=== PATIENT | male | born 1955 | race Caucasian/White ===

== ENCOUNTER → 2019-06-02 | Outpatient (CLI) | payer OTHER | END | disposition home or self-care (01) | LOC: LABPAT 11:06 | PROVIDERS: ATTEND Internal Medicine Cardiovascular Disease | DX: Z53.9 Procedure and treatment not carried out, unspecified reason (principal) ==

== ENCOUNTER 2019-06-11 06:35 | Day surgery (SDC) | payer OTHER ==
[~2019-06-11 06:35] MED LIST: ALPRAZolam 0.25 MG TAB PO PRN; ALPRAZolam 0.5 MG TAB PO PRN; ASPIRIN 325 MG TAB PO STA; ATORVASTATIN 80 MG TAB PO STA; NITROGLYCERIN SL TABS 0.4 MG TAB SUBLINGUAL PRN; SODIUM CHLORIDE 0.9% 1,000 ML in EMPTY BAG 1 BAG IV ONE
[2019-06-11] MEDS ORDERED: SODIUM CHLORIDE 0.9% 1,000 ML IV ONE (07:06)
[2019-06-11 07:10] LABS: Glucose,Whole Blood 119 mg/dL (75-99)
[2019-06-11 07:15] LABS: Basophils # (A) 0.1 k/uL (0-0.2); Basophils % (A) 1 %; Eosinophils # (A) 0.3 k/uL (0-0.7); Eosinophils % (A) 3 %; HCT 39.2 % (39.0-53.0); HGB 13.1 gm/dL (13.0-17.5); Lymphocytes # (A) 1.5 k/uL (1.0-4.8); Lymphocytes % (A) 15 %; MCH 27.3 pg (25.0-35.0); MCHC 33.3 g/dL (31.0-37.0); MCV 82.1 fL (80.0-100.0); Mean Platelet Volume 6.4; Monocytes # (A) 0.4 k/uL (0-1.0); Monocytes % (A) 4 %; Neutrophils # (A) 7.7 k/uL (1.3-7.7); Neutrophils % (A) 76 %; Platelet Count 225 k/uL (150-450); RBC 4.78 m/uL (4.30-5.90); RDW 14.8 % (11.5-15.5); WBC 10.2 k/uL (3.8-10.6)
[2019-06-11] MEDS ORDERED: LIDOCAINE 1% INJ 10MG/ML (20 ML MDV) ONE (07:17)
[2019-06-11 07:24] LABS: Calcium 9.6 mg/dL (8.4-10.2); Potassium 4.3 mmol/L (3.5-5.1)
[2019-06-11] MEDS ORDERED: MIDAZOLAM 2 MG/2 ML VIAL IV ONE (07:36)
[2019-06-11] MEDS ORDERED: LIDOCAINE 1% INJ 10MG/ML (20 ML MDV) SQ ONE (07:38)
[2019-06-11] MEDS ORDERED: BIVALIRUDIN BOLUS 250 MG/50 ML IV ONE (08:20)
[2019-06-11] MEDS ORDERED: BIVALIRUDIN 250 MG in SODIUM CHLORIDE 0.9% 50 ML IV ONE ×2 (08:21→09:11)
--- NOTE | 2019-06-11 08:23 | CC ---
CARDIAC CATHETERIZATION REPORT INDICATION: Shortness of breath with abnormal stress test in a patient with cardiomyopathy and areas of reversible perfusion defect involving the anterior wall and anterolateral wall. PROCEDURE NOTE: After obtaining informed consent, left heart catheterization and coronary angiogram are performed via the right femoral artery using standard Madi catheters. The patient tolerated the procedure well without any obvious immediate complications. A femoral angiogram was performed and Angio-Seal will be deployed at the end of the procedure. The patient received moderate conscious sedation. Total sedation time was 15 minutes. FINDINGS: 1. HEMODYNAMICS: Left ventricular end-diastolic pressure is 16-18 mm. There is no significant gradient across the aortic valve. 2. LEFT VENTRICULOGRAM: Left ventriculogram is not performed. 3. ANGIOGRAPHIC DATA: Left Main Coronary Artery: Left main coronary artery is a normal-sized vessel and is free of significant stenosis. Divides into left anterior descending coronary artery and circumflex coronary artery. LAD shows an occluded diagonal branch with [id number] collaterals from the distal LAD to the diagonal. There is a long segment of moderate area of atherosclerotic plaque in the mid LAD. Circumflex coronary artery is a nondominant vessel that shows a 90% to 95% stenosis at the origin of the OM branch. Right coronary artery is a large dominant vessel that shows mild nonobstructive disease in the proximal and midportion. The PDA shows a 70% focal stenosis. CONCLUSIONS: Three-vessel coronary artery disease as described above with 95% stenosis involving the OM branch and 70% stenosis involving PDA. PLAN: I am going to review the angiographic data with Dr. James Amos, the on-call contact lens manufacturer, and decide on multivessel angioplasty. MMODL / IJN: [id number] /
[2019-06-11] MEDS: NITROGLYCERIN 1000MCG/10ML SYRINGE INTRACORON ONE ×3 (08:37→09:14)
[2019-06-11] MEDS ORDERED: IOPAMIDOL-370 125ML BTL INJ ONE ×2 (08:39→09:02)
[2019-06-11] MEDS ORDERED: TICAGRELOR 90 MG TAB ONE (09:17)
[2019-06-11] MEDS ORDERED: TICAGRELOR 90 MG TAB PO ONE (09:18)
[2019-06-11] MEDS ORDERED: IOPAMIDOL-250 100ML BTL INTRAARTER ONE (09:20)
--- NOTE | 2019-06-11 12:57 | PTCA ---
PERCUTANEOUSTRANS CORORONARY ANGIOGRAPHY DATE OF SERVICE: 06/11/2019. PROCEDURES: 1. PTCA and stenting of mid left anterior descending coronary artery with a drug- eluting stent. 2. PTCA and stenting of circumflex marginal with a drug-eluting stent. PERFORMED BY: Dr. James Amos. Moderate conscious sedation time was 65 minutes. Patient was administered Versed. Oxygen saturation, hemodynamics and EKG were monitored closely. CLINICAL INFORMATION: Mr. Reyes Blevins is a 63-year-old gentleman, a patient of Dr. Diaz with abnormal stress test with antral wall reversible defect, who underwent a cardiac cath that revealed that there was a diagonal branch that was occluded and a small obtuse marginal branch that was occluded, but mid LAD had eccentric 70% stenosis in a very calcified area. Circumflex marginal had about 80% to 85% stenosis right at its ostium and in the proximal portion and the circumflex at the site of the origin of this marginal had a 30% narrowing. He was advised intervention that was performed in the same setting. This gentleman has atrial fibrillation, controlled rate on Eliquis 5 mg b.i.d. PROCEDURE NOTE: The existing 6-Palestinian introducer in the femoral artery was used to perform procedure. I used a JL4 guide catheter to cannulate left coronary artery and a run-through wire was used to cross the lesion. A 2.5 caliber 18 mm NC Trek balloon was used to dilate the LAD lesion. I then deployed an 18 mm long 2.75 caliber Xience stent and deployed this at 13 atmospheres. Excellent angiographic result without complication was achieved. Patient had mild chest discomfort and no significant EKG changes. I then used the same wire and went into the circumflex marginal and also another whisper wire was used to place in the main circumflex. A 2.5, 12 mm NC Trek balloon was used to dilate the circumflex marginal. I then deployed a 12 mm long 2.5 caliber Xience stent in the circumflex vessel. Excellent angiographic result was achieved. The patient had no complication. He received Angiomax bolus and infusion and also he received 180 mg of ticagrelor, Brilinta. The sheath was taken out and Angio-Seal device used to secure hemostasis and he was sent to the room in a stable condition. The results were discussed with the patient and his brother Mr. Thanh Blevins. Excellent angiographic result without complication was achieved. He will be discharged tomorrow if he remains stable. MMLILA / KELVINN: [id number] /
[2019-06-11 13:09] VITALS: BMI 33.6
[2019-06-11] MEDS: SODIUM CHLORIDE 0.9% 1,000 ML IV SCH (13:22)
[2019-06-11] MEDS: METOPROLOL TARTRATE 25 MG TAB PO SCH ×2 (16:13→20:20)
[2019-06-11 16:46] LABS: Glucose,Whole Blood 122 mg/dL (75-99)
[2019-06-11] MEDS ORDERED: LOSARTAN 25 MG TAB PO SCH (21:00)
[2019-06-11] MEDS ORDERED: ATORVASTATIN 80 MG TAB PO SCH (21:00)
[2019-06-11 21:07] LABS: Glucose,Whole Blood 129 mg/dL (75-99)
[2019-06-12] MEDS: SODIUM CHLORIDE 0.9% 1,000 ML IV SCH (03:08)
[2019-06-12] MEDS ORDERED: TICAGRELOR 90 MG TAB PO SCH (06:00)
[2019-06-12] MEDS ORDERED: ASPIRIN 81 MG PO SCH (06:00)
[2019-06-12 06:38] LABS: Glucose,Whole Blood 119 mg/dL (75-99)
[2019-06-12 08:39] VITALS: BP 103/75; PULSE 90; RESP 18; TEMP 98.1
[2019-06-12] MEDS: METOPROLOL TARTRATE 25 MG TAB PO SCH (08:39)
[2019-06-12] MEDS ORDERED: ATORVASTATIN 80 MG TAB PO SCH (09:00)
--- NOTE | 2019-06-12 09:33 | P.DS ---
Providers Attending physician: Richard Diaz Primary care physician: [facility] Course: This is a pleasant 63-year-old gentleman who sees Dr. Diaz in the office as an outpatient was experiencing chest discomfort. The patient does have diabetes, hypertension, dyslipidemia. He underwent heart catheterization and was found to have severe 2 vessel CAD involving the LCx and LAD. He underwent successful stenting of both vessels by Dr. Amos area On follow-up with him today, he is doing good and he is asymptomatic. The right groin is soft and nontender and without any bruises. The patient is going to be discharged home and follow-up with Dr. Diaz in the office. Plan - Discharge Summary Discharge Rx Participant: No New Discharge Prescriptions: New Ticagrelor [Brilinta] 90 mg PO Q12H #90 tab Losartan [Cozaar] 25 mg PO HS #90 tab Continue Omeprazole 40 mg PO BID Benztropine Mesylate 0.5 mg PO BID risperiDONE 1 mg PO BID Paliperidone Palmitate [Invega Sustenna] 156 mg IM Q30D metFORMIN HCL [Glucophage] 500 mg PO DAILY Atorvastatin [Lipitor] 40 mg PO HS Metoprolol Tartrate [Lopressor] 25 mg PO BID Aspirin 81 mg PO DAILY Fluticasone Nasal [place] [Flonase Nasal [place]] 1 spray EA NOSTRIL DAILY Cholecalciferol (Vitamin D3) [Vitamin D3] 1,000 unit PO DAILY Changed Apixaban [Eliquis] 2.5 mg PO BID #0 Discharge Medication List Aspirin 81 mg PO DAILY 06/09/19 [History] Atorvastatin [Lipitor] 40 mg PO HS 06/09/19 [History] Benztropine Mesylate 0.5 mg PO BID 06/09/19 [History] Cholecalciferol (Vitamin D3) [Vitamin D3] 1,000 unit PO DAILY 06/09/19 [History] Fluticasone Nasal [place] [Flonase Nasal [place]] 1 spray EA NOSTRIL DAILY 06/09/19 [History] Metoprolol Tartrate [Lopressor] 25 mg PO BID 06/09/19 [History] Omeprazole 40 mg PO BID 06/09/19 [History] Paliperidone Palmitate [Invega Sustenna] 156 mg IM Q30D 06/09/19 [History] metFORMIN HCL [Glucophage] 500 mg PO DAILY 06/09/19 [History] risperiDONE 1 mg PO BID 06/09/19 [History] Apixaban [Eliquis] 2.5 mg PO BID #0 06/12/19 [Rx] Losartan [Cozaar] 25 mg PO HS #90 tab 06/12/19 [Rx] Ticagrelor [Brilinta] 90 mg PO Q12H #90 tab 06/12/19 [Rx] Follow up Appointment(s)/Referral(s): Richard Diaz MD [STAFF PHYSICIAN] - 1 Week Patient Instructions/Handouts: *Surgery [facility] - After Heart Catheterization - [place] [employer] Instructions, Left Heart Catheterization (DC), Angio-Seal (DC)
== END 2019-06-12 12:32 | disposition home or self-care (01) ==
LOC: CATHCVL 06:35 → 3SCARD 12:17 → CATHCVL 06-12 12:32
PROVIDERS: ATTEND Internal Medicine Cardiovascular Disease
DX: I25.10 Atherosclerotic heart disease of native coronary artery without angina pectoris (principal); I25.84 Coronary atherosclerosis due to calcified coronary lesion; I10 Essential (primary) hypertension; Z72.0 Tobacco use; I48.2 Chronic atrial fibrillation; I25.5 Ischemic cardiomyopathy; E78.2 Mixed hyperlipidemia; E11.9 Type 2 diabetes mellitus without complications; F20.9 Schizophrenia, unspecified; Z86.73 Personal history of transient ischemic attack (TIA), and cerebral infarction without residual deficits; Z82.49 Family history of ischemic heart disease and other diseases of the circulatory system; Z79.01 Long term (current) use of anticoagulants; Z79.82 Long term (current) use of aspirin; Z79.51 Long term (current) use of inhaled steroids; Z79.899 Other long term (current) drug therapy
CPT/HCPCS: 93458; 80048; 85025; C9600 ×2; C1760; C1769 ×3; C1887; C1725 ×4; C1894; C1874; J2250; J2001; J0583; Q9966; Q9967

== ENCOUNTER 2019-06-24 14:41 | Emergency (ER) | payer OTHER ==
[2019-06-24 14:49] VITALS: TEMP 97.8
[2019-06-24] MEDS ORDERED: SODIUM CHLORIDE 0.9% 500 ML 500 ML IV STA (15:10)
[2019-06-24 15:26] LABS: Basophils # (A) 0.1 k/uL (0-0.2); Basophils % (A) 1 %; Eosinophils # (A) 0.5 k/uL (0-0.7); Eosinophils % (A) 5 %; HCT 39.9 % (39.0-53.0); HGB 13.1 gm/dL (13.0-17.5); Lymphocytes # (A) 1.9 k/uL (1.0-4.8); Lymphocytes % (A) 21 %; MCH 27.2 pg (25.0-35.0); MCHC 32.8 g/dL (31.0-37.0); MCV 82.9 fL (80.0-100.0); Mean Platelet Volume 6.6; Monocytes # (A) 0.4 k/uL (0-1.0); Monocytes % (A) 4 %; Neutrophils # (A) 6.1 k/uL (1.3-7.7); Neutrophils % (A) 66 %; Platelet Count 253 k/uL (150-450); RBC 4.81 m/uL (4.30-5.90); RDW 14.9 % (11.5-15.5); WBC 9.2 k/uL (3.8-10.6)
--- NOTE | 2019-06-24 15:31 | ED ---
General Adult HPI - General Chief complaint: Arrhythmia/Palpitations Stated complaint: AFIB Time Seen by Provider: 06/24/19 14:45 Source: patient, RN notes reviewed, old records reviewed Mode of arrival: ambulatory Limitations: no limitations - History of Present Illness Initial comments: This is a 63-year-old male who has a past medical history significant for stent placement as well as atrial fibrillation. 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 Patient denies any chest pain. Patient denies any palpitations that he can ascertain. Patient denies any recent fever chills or cough. Patient denies any abdominal pain patient denies any nausea or vomiting. Patient denies headache patient denies numbness weakness. Patient denies any edema or calf tenderness. - Related Data Home Medications Medication Instructions Recorded Confirmed Aspirin 81 mg PO DAILY 06/09/19 06/24/19 Atorvastatin [Lipitor] 40 mg PO HS 06/09/19 06/24/19 Benztropine Mesylate 0.5 mg PO BID 06/09/19 06/24/19 Cholecalciferol (Vitamin D3) 1,000 unit PO DAILY 06/09/19 06/24/19 [Vitamin D3] Fluticasone Nasal [place] [Flonase 1 spray EA NOSTRIL DAILY 06/09/19 06/24/19 Nasal [place]] Metoprolol Tartrate [Lopressor] 25 mg PO BID 06/09/19 06/24/19 Omeprazole 40 mg PO BID 06/09/19 06/24/19 Paliperidone Palmitate [Invega 156 mg IM Q30D 06/09/19 06/24/19 Sustenna] metFORMIN HCL [Glucophage] 500 mg PO DAILY 06/09/19 06/24/19 risperiDONE 1 mg PO BID 06/09/19 06/24/19 Previous Rx's Medication Instructions Recorded Apixaban [Eliquis] 2.5 mg PO BID #0 06/12/19 Losartan [Cozaar] 25 mg PO HS #90 tab 06/12/19 Ticagrelor [Brilinta] 90 mg PO Q12H #90 tab 06/12/19 Allergies Allergy/AdvReac Type Severity Reaction Status Date / Time No Known Allergies Allergy Verified 06/24/19 15:03 Review of Systems ROS Statement: Those systems with pertinent positive or pertinent negative responses have been documented in the HPI. ROS Other: All systems not noted in ROS Statement are negative. Past Medical History Past Medical History: CVA/TIA, Diabetes Mellitus, GERD/Reflux, Hypertension Additional Past Medical History / Comment(s): SOB,CVA-2016-no residual History of Any Multi-Drug Resistant Organisms: None Reported Past Surgical History: Orthopedic Surgery Additional Past Surgical History / Comment(s): ORIF(2 pins) left 4th digit Past Anesthesia/Blood Transfusion Reactions: No Reported Reaction, Family History of Problems w/ Anesthesia Additional Past Anesthesia/Blood Transfusion Reaction / Comment(s): mother had trouble to waking up from anesthesia.no hx blood transfusion Past Psychological History: No Psychological Hx Reported, Schizophrenia Smoking Status: Former smoker Past Alcohol Use History: None Reported Past Drug Use History: None Reported - Past Family History Mother Family Medical History: Coronary Artery Disease (CAD) Additional Family Medical History / Comment(s): CABG Father Family Medical History: Cancer Additional Family Medical History / Comment(s): colon General Exam - General Exam Comments Initial Comments: GENERAL: Patient is well-developed and well-nourished. Patient is nontoxic and well- hydrated and is in mild distress. ENT: Neck is soft and supple. No significant lymphadenopathy is noted. Oropharynx is clear. Moist mucous membranes. Neck has full range of motion without eliciting any pain. EYES: The sclera were anicteric and conjunctiva were pink and moist. Extraocular movements were intact and pupils were equal round and reactive to light. Eyelids were unremarkable. PULMONARY: Unlabored respirations. Good breath sounds bilaterally. No audible rales rhonchi or wheezing was noted. CARDIOVASCULAR: Patient has an irregular heart rate at about 110 bpm. ABDOMEN: Soft and nontender with normal bowel sounds. No palpable organomegaly was noted. There is no palpable pulsatile mass. SKIN: She appears very pale. NEUROLOGIC: Patient is alert and oriented x3. Cranial nerves II through XII are grossly intact. Motor and sensory are also intact. Normal speech, volume and content. Symmetrical smile. MUSCULOSKELETAL: Normal extremities with adequate strength and full range of motion. No lower ex tremity swelling or edema. No calf tenderness. LYMPHATICS: No significant lymphadenopathy is noted PSYCHIATRIC: Normal psychiatric evaluation. Limitations: no limitations Course Vital Signs 06/24/19 06/24/19 06/24/19 14:46 15:30 15:33 Temperature 97.8 F Pulse Rate 88 108 H Pulse Rate [ 100 Clerical Transcriber ] Respiratory 22 17 Rate Blood Pressure 112/64 100/70 O2 Sat by Pulse 97 99 Oximetry 06/24/19 16:00 Temperature Pulse Rate 80 Pulse Rate [ Clerical Transcriber ] Respiratory 16 Rate Blood Pressure 105/67 O2 Sat by Pulse 100 Oximetry Medical Decision Making - Medical Decision Making EKG shows atrial fibrillation with rapid ventricular response at 110 bpm QRS is 82 QT interval 362 QTC is 489 per patient's EKG shows no ST segment elevation or depression patient does have a PVC on EKG. Chest x-ray showed no acute abnormality. I will back in the room to reevaluate the patient his heart rate was in the 90s he was feeling better and no longer short of breath. I went over the results with Dr. Farnsworth and he was in agreement that the patient to go home and follow up with cardiology. Patient did not want to stay and agreed to follow up with cardiology. - Lab Data Result diagrams: 06/24/19 15:00 06/24/19 15:00 Lab Results 06/24/19 06/24/19 06/24/19 Range/Units 15:00 15:00 15:00 WBC 9.2 (3.8-10.6) k/uL RBC 4.81 (4.30-5.90) m/uL Hgb 13.1 (13.0-17.5) gm/dL Hct 39.9 (39.0-53.0) % MCV 82.9 (80.0-100.0) fL MCH 27.2 (25.0-35.0) pg MCHC 32.8 (31.0-37.0) g/dL RDW 14.9 (11.5-15.5) % Plt Count 253 (150-450) k/uL Neutrophils % 66 % Lymphocytes % 21 % Monocytes % 4 % Eosinophils % 5 % Basophils % 1 % Neutrophils # 6.1 (1.3-7.7) k/uL Lymphocytes # 1.9 (1.0-4.8) k/uL Monocytes # 0.4 (0-1.0) k/uL Eosinophils # 0.5 (0-0.7) k/uL Basophils # 0.1 (0-0.2) k/uL PT 10.3 (9.0-12.0) sec INR 1.0 (<1.2) APTT 25.4 (22.0-30.0) sec D-Dimer 0.30 (<0.60) mg/L FEU Sodium 141 (137-145) mmol/L Potassium 3.9 (3.5-5.1) mmol/L Chloride 106 (98-107) mmol/L Carbon Dioxide 25 (22-30) mmol/L Anion Gap 10 mmol/L BUN 12 (9-20) mg/dL Creatinine 1.16 (0.66-1.25) mg/dL Est GFR (CKD-EPI)AfAm 77 (>60 ml/min/1.73 sqM) Est GFR (CKD-EPI)NonAf 66 (>60 ml/min/1.73 sqM) Glucose 117 H (74-99) mg/dL Calcium 9.3 (8.4-10.2) mg/dL Magnesium 1.9 (1.6-2.3) mg/dL Total Bilirubin 0.8 (0.2-1.3) mg/dL AST 27 (17-59) U/L ALT 28 (21-72) U/L Alkaline Phosphatase 108 (38-126) U/L Troponin I (0.000-0.034) ng/mL NT-Pro-B Natriuret Pep pg/mL Total Protein 7.4 (6.3-8.2) g/dL Albumin 4.2 (3.5-5.0) g/dL 06/24/19 06/24/19 Range/Units 15:00 15:00 WBC (3.8-10.6) k/uL RBC (4.30-5.90) m/uL Hgb (13.0-17.5) gm/dL Hct (39.0-53.0) % MCV (80.0-100.0) fL MCH (25.0-35.0) pg MCHC (31.0-37.0) g/dL RDW (11.5-15.5) % Plt Count (150-450) k/uL Neutrophils % % Lymphocytes % % Monocytes % % Eosinophils % % Basophils % % Neutrophils # (1.3-7.7) k/uL Lymphocytes # (1.0-4.8) k/uL Monocytes # (0-1.0) k/uL Eosinophils # (0-0.7) k/uL Basophils # (0-0.2) k/uL PT (9.0-12.0) sec INR (<1.2) APTT (22.0-30.0) sec D-Dimer (<0.60) mg/L FEU Sodium (137-145) mmol/L Potassium (3.5-5.1) mmol/L Chloride (98-107) mmol/L Carbon Dioxide (22-30) mmol/L Anion Gap mmol/L BUN (9-20) mg/dL Creatinine (0.66-1.25) mg/dL Est GFR (CKD-EPI)AfAm (>60 ml/min/1.73 sqM) Est GFR (CKD-EPI)NonAf (>60 ml/min/1.73 sqM) Glucose (74-99) mg/dL Calcium (8.4-10.2) mg/dL Magnesium (1.6-2.3) mg/dL Total Bilirubin (0.2-1.3) mg/dL AST (17-59) U/L ALT (21-72) U/L Alkaline Phosphatase (38-126) U/L Troponin I <0.012 (0.000-0.034) ng/mL NT-Pro-B Natriuret Pep 980 pg/mL Total Protein (6.3-8.2) g/dL Albumin (3.5-5.0) g/dL Disposition Clinical Impression: Atrial fibrillation Disposition: HOME SELF-CARE Condition: Good Is patient prescribed a controlled substance at d/c from ED?: No Referrals: Richard Diaz MD [STAFF PHYSICIAN] - 1-2 days Time of Disposition: 16:40
--- NOTE | 2019-06-24 15:32 | XR ---
EXAMINATION TYPE: XR chest 2V DATE OF EXAM: 06/24/2019 COMPARISON: NONE HISTORY: Shortness of breath TECHNIQUE: Frontal and lateral views of the chest are obtained. FINDINGS: Scattered senescent parenchymal changes noted. Hyperinflation compatible with COPD. No evidence for infiltrate. No evidence for atelectasis. Heart size is stable. Mediastinal structures are stable and grossly unremarkable. No evidence for hilar prominence. Degenerative changes dorsal spine. IMPRESSION: 1. No evidence for acute pulmonary disease.
[2019-06-24 15:36] LABS: Albumin 4.2 g/dL (3.5-5.0); Calcium 9.3 mg/dL (8.4-10.2); Magnesium 1.9 mg/dL (1.6-2.3); Potassium 3.9 mmol/L (3.5-5.1); Total Bilirubin 0.8 mg/dL (0.2-1.3); Total Protein 7.4 g/dL (6.3-8.2)
[2019-06-24 15:41] LABS: D-Dimer 0.3 mg/L FEU (<0.60); Partial Thromboplastin Time 25.4 sec (22.0-30.0); Prothrombin Time 10.3 sec (9.0-12.0)
[2019-06-24 16:49] VITALS: BP 106/66; PULSE 108; RESP 13
== END 2019-06-24 16:52 | disposition home or self-care (01) ==
LOC: EC 14:41
DX: I48.91 Unspecified atrial fibrillation (principal); E11.9 Type 2 diabetes mellitus without complications; K21.9 Gastro-esophageal reflux disease without esophagitis; I10 Essential (primary) hypertension; F20.9 Schizophrenia, unspecified; Z87.891 Personal history of nicotine dependence; Z82.49 Family history of ischemic heart disease and other diseases of the circulatory system; Z86.73 Personal history of transient ischemic attack (TIA), and cerebral infarction without residual deficits; Z79.82 Long term (current) use of aspirin; Z79.84 Long term (current) use of oral hypoglycemic drugs; Z79.899 Other long term (current) drug therapy
CPT/HCPCS: 36415; 71046; 80053; 83735; 83880; 84484; 85025; 85379; 85610; 85730; 93005; 99285